=== PATIENT | male | born 1990 | race Two or more races ===

== ENCOUNTER 2021-09-20 17:11 | Emergency (ER) | payer OTHER ==
[~2021-09-20] VITALS: Ht 172.7 cm; Wt 92.0 kg
[2021-09-20 17:13] VITALS: BP 129/75
[2021-09-20] MEDS ORDERED: ACETAMINOPHEN 325MG TABLET PO ONE (17:45)
[2021-09-20] MEDS ORDERED: TETANUS, DIPHTHERIA, PERTUSSIS VAC/PF 0.5ML (>10YR OLD) IM ONE (18:45)
== END 2021-09-20 19:09 | disposition home or self-care (01) ==
LOC: ER 17:11
DX: M79.645 Pain in left finger(s) (principal); Z91.81 History of falling
CPT/HCPCS: 73140; 90471; 90715; 99283